=== PATIENT | female | born 1960 | race Caucasian/White ===

== ENCOUNTER 2018-03-27 11:54 | Outpatient (CLI) | payer OTHER | END 2018-03-27 11:55 | disposition home or self-care (01) | LOC: C.RT 11:54 ==

== ENCOUNTER 2018-04-07 08:58 | Outpatient (CLI) | payer OTHER | END 2018-04-07 08:59 | disposition home or self-care (01) | LOC: C.LAB 08:58 | DX: Z01.812 Encounter for preprocedural laboratory examination (principal) ==

== ENCOUNTER 2018-04-07 09:09 | Outpatient (CLI) | payer OTHER | END 2018-04-07 09:10 | disposition home or self-care (01) | LOC: C.LAB 09:09 | DX: R91.1 Solitary pulmonary nodule (principal) ==

== ENCOUNTER 2018-04-17 07:45 | Inpatient (IN) | payer OTHER ==
[2018-04-25] MEDS ORDERED: Bupivacaine HCl 0.25% PF (10 ml) Inj ONE ×2 (07:24)
[2018-04-25] MEDS ORDERED: ceFAZolin 1 gm in NS 2 GM/200 ML BAG IVPB ONE (07:24)
[2018-04-25] MEDS ORDERED: Collagen Hemostat Powder ONE (07:24)
[2018-04-25] MEDS ORDERED: Propofol 10 mg/ml Inj (20 ML) ONE ×2 (07:34→10:44)
[2018-04-25] MEDS ORDERED: Midazolam 2 MG/2 ML VIAL ONE (07:35)
[2018-04-25] MEDS ORDERED: Bupivacaine Liposomal Inj 20 ml ONE (07:45)
[2018-04-25] MEDS ORDERED: Bupivacaine Liposomal Inj 20 ml INFIL ONE (07:45)
[2018-04-25] MEDS ORDERED: Sodium Chloride 0.9% 40 ML IV ONE (08:54)
[2018-04-25 10:28] VITALS: BMI 27.8
[2018-04-25] MEDS ORDERED: Rocuronium 10 mg/ml (5 ml) ONE (11:03)
[2018-04-25] MEDS ORDERED: Succinylcholine Chloride 20 mg/ml Syr (5 ml) IV ONE (11:03)
[2018-04-25] MEDS: HYDROmorphone 0.5 mg/0.5 ml ISec IVP PRN ×5 (11:35→13:30)
[2018-04-25] MEDS ORDERED: HYDROmorphone 0.5 mg/0.5 ml ISec ONE (11:38)
[2018-04-25] MEDS ORDERED: Fluticasone-Vilanterol 200/25mcg Diskus INH PRN (11:39)
--- NOTE | 2018-04-25 11:44 | PCM.SURG1 ---
Surgeon's Initial Post Op Note - Surgeon's Notes Surgeon: Dr. Nelson Warehouse Processor: Dr. Nikko Thomas PGY3 Type of Anesthesia: General Endo Pre-Operative Diagnosis: Lung adenocarcinoma Operative Findings: see dictation Post-Operative Diagnosis: same Operation Performed: robotic right upper lobectomy w/ mediastinal lymph node Bx Specimen/Specimens Removed: right upper lobe, lymph nodes Estimated Blood Loss: EBL {In ML}: 94 Blood Products Given: N/A Drains Used: Chest Tubes Post-Op Condition: Good Date of Surgery/Procedure: 04/25/18 Time of Surgery/Procedure: 11:43
[2018-04-25] MEDS ORDERED: DiphenhydrAMINE 50 mg/ml Inj IVP ONE (12:15)
--- NOTE | 2018-04-25 13:57 | RAD ---
Date of service: 04/25/2018 PROCEDURE: CHEST RADIOGRAPH, 1 VIEW HISTORY: s/p lobectomy COMPARISON: 04/07/2018 FINDINGS: LUNGS: Status post right upper lobectomy. There is interval resection of previously noted right upper lobe mass. The left lung is well inflated and clear. There is mild pulmonary venous congestion. PLEURA: Right chest tube terminates in the apex. No pneumothorax. CARDIOVASCULAR: Persistent cardiomegaly. No aortic atherosclerotic calcifications present. OSSEOUS STRUCTURES: Within normal limits for the patient's age. VISUALIZED UPPER ABDOMEN: Normal. OTHER FINDINGS: None. IMPRESSION: Status post right upper lobectomy. No acute findings. Right chest tube terminates in the apex.
[2018-04-25] MEDS: Dextrose 5%/0.45% NS 1,000 ML IV SCH ×2 (15:00→22:07)
[2018-04-25 19:34] VITALS: RESP 20
[2018-04-25] MEDS: PARoxetine 5 mg Tab PO SCH ×2 (22:16→22:19)
[2018-04-26] MEDS: Dextrose 5%/0.45% NS 1,000 ML IV SCH ×2 (02:59→07:54)
[2018-04-26 07:25] LABS: HEMOGLOBIN 11.8 g/dL (11.0-16.0); MEAN CORPUSCULAR HEMOGLOBIN 28.4 pg (27.0-31.0); MEAN CORPUSCULAR HGB CONC 33.4 g/dL (33.0-37.0); MEAN PLATELET VOLUME 9.4 fL (7.2-11.7); RBC 4.16 Mil/uL (3.80-5.20); RED CELL DISTRIBUTION WIDTH 13.7 % (11.5-14.5); WHITE BLOOD COUNT 7.9 K/uL (4.8-10.8)
[2018-04-26 08:01] LABS: BLOOD UREA NITROGEN 7 mg/dL (7-17); CALCIUM 8.8 mg/dl (8.6-10.4); GFR NON-AFRICAN AMERICAN > 60
[2018-04-26] MEDS ORDERED: Potassium Chloride 20 mEq ER Tab PO ONE (08:13)
[2018-04-26] MEDS: oxyCODONE 10 mg Immediate Release Tab PO PRN ×4 (08:34→22:54)
--- NOTE | 2018-04-26 08:34 | CP.PCM.PN ---
Subjective - Date & Time of Evaluation Date of Evaluation: 04/26/18 Time of Evaluation: 07:00 - Subjective Subjective: Thoracic Surgery Dr. Nelson Pt seen and examined @bedside. Pt underwent right upper lobectomy yesterday. pt tolerated the procedure well w/ no complications. No acute events overnight. Pt reports some R-sided chest discomfort this AM. denies F/C, SOB, N/V. tolerating diet. RCT on ws, no leak, 140cc serosang since placement Objective - Vital Signs/Intake and Output Vital Signs (last 24 hours): Temp Pulse Resp BP Pulse Ox 97.9 F 80 20 131/83 97 04/26/18 07:05 04/26/18 07:49 04/26/18 07:05 04/26/18 07:05 04/26/18 07:05 Intake and Output: 04/26/18 04/26/18 06:59 18:59 Intake Total 1640 Output Total 490 Balance 1150 - Medications Medications: Current Medications Acetaminophen (Tylenol 325mg Tab) 650 mg PO Q6 PRN PRN Reason: Pain, Mild (1-3) Last Admin: 04/25/18 22:05 Dose: 650 mg Calcium Carbonate (Oscal) 500 mg PO DAILY [facility] Fluticasone/Vilanterol (Breo Ellipta 200-25 Mcg Inh) 1 puff INH RQD [facility] Heparin Sodium (Porcine) (Heparin) 5,000 units SC Q8 [facility] Last Admin: 04/26/18 05:44 Dose: 5,000 units Hydromorphone HCl (Dilaudid) 1 mg IVP Q4H PRN PRN Reason: Pain, severe (8-10) Ondansetron HCl (Zofran Inj) 4 mg IVP Q4 PRN PRN Reason: Nausea/Vomiting Last Admin: 04/25/18 17:37 Dose: 4 mg Oxycodone HCl (Oxycodone Immediate Release Tab) 10 mg PO Q4H PRN PRN Reason: Pain, moderate (4-7) Stop: 04/28/18 11:40 Paroxetine HCl (Paxil) 5 mg PO HS [facility] Last Admin: 04/25/18 22:19 Dose: Not Given - Labs Labs: 04/26/18 07:07 04/26/18 07:07 - Constitutional Appears: Non-toxic, No Acute Distress - Head Exam Head Exam: NORMAL INSPECTION - Eye Exam Eye Exam: Normal appearance - ENT Exam ENT Exam: Mucous Membranes Moist - Respiratory Exam Respiratory Exam: NORMAL BREATHING PATTERN. absent: Accessory Muscle Use, Respiratory Distress Additional comments: incisions c/d/i chest tube in place no palpable subQ emphysema - Cardiovascular Exam Cardiovascular Exam: REGULAR RHYTHM. absent: Bradycardia, Tachycardia - GI/Abdominal Exam GI & Abdominal Exam: Soft. absent: Distended, Tenderness - Extremities Exam Extremities Exam: Normal Inspection - Neurological Exam Neurological Exam: Alert, Awake, Oriented x3 - Psychiatric Exam Psychiatric exam: Normal Affect, Normal Mood - Skin Skin Exam: Dry, Intact, Normal Color, Warm Assessment and Plan - Assessment and Plan (Free Text) Assessment: 57 y/o F POD#1 s/p robotic right upper lobectomy 2/2 lung adenocarcinoma Plan: - f/u AM CXR - d/c dPCA; PO pain management - d/c IVF, hep-lock - ADAT - OOB to chair w/ meals - encourage Amb & IS use (10x per hour) - DVT PPx Pt discussed w/ Dr. Omar El DO PGY3
[2018-04-26] MEDS: HYDROmorphone 1 mg/ml ISec IVP PRN ×4 (10:41→23:33)
[2018-04-26] MEDS: Fluticasone-Vilanterol 200/25mcg Diskus INH SCH (11:25)
--- NOTE | 2018-04-26 13:07 | RAD ---
Date of service: 04/26/2018 HISTORY: s/p lobectomy; RCT COMPARISON: No prior. FINDINGS: LUNGS: In situ right-sided chest tube again noted unchanged.. Right upper lobectomy with elevation right hemidiaphragm and volume loss right hemithorax. Mild left basilar atelectasis. Previously noted mild mild central pulmonary venous congestion proved. PLEURA: No significant pleural effusion identified, no pneumothorax apparent. CARDIOVASCULAR: No aortic atherosclerotic calcification present. Normal cardiac size. No pulmonary vascular congestion. OSSEOUS STRUCTURES: No significant abnormalities. VISUALIZED UPPER ABDOMEN: Normal. OTHER FINDINGS: None. IMPRESSION: In situ right-sided chest tube again noted unchanged.. Right upper lobectomy with elevation right hemidiaphragm and volume loss right hemithorax. Mild left basilar atelectasis. Previously noted mild mild central pulmonary venous congestion proved.
[2018-04-26] MEDS: Lidocaine 5% Patch TD SCH (14:19)
[2018-04-26] MEDS ORDERED: PARoxetine 5 mg Tab PO SCH (22:00)
[2018-04-27] MEDS: oxyCODONE 10 mg Immediate Release Tab PO PRN ×4 (03:03→23:53)
[2018-04-27] MEDS ORDERED: HYDROmorphone 0.5 mg/0.5 ml ISec IVP PRN (04:44)
--- NOTE | 2018-04-27 07:35 | OP ---
PROCEDURE DATE: 04/25/2018 PREOPERATIVE DIAGNOSES: Biopsy proven right upper lobe early stage adenocarcinoma, permissible preoperative clearances including general medical clearance and pulmonary function reserved. POSTOPERATIVE DIAGNOSES: Biopsy proven right upper lobe early stage adenocarcinoma, permissible preoperative clearances including general medical clearance and pulmonary function reserved. PROCEDURE: 1. Flexible bronchoscopy. 2. Regional intercostal nerve block (multiple). 3. Robotic right video assisted thoracoscopic surgery. 4. Intrapleural pneumolysis. 5. Right upper lobectomy. 6. Mediastinal lymph node dissection (lymph nodes at stations 4, 7, and 10). SURGEON: Sridhar Nelson M.D. STRAIGHTENING MACHINE FEEDER: Rodney Mayo MD TYPE OF ANESTHESIA: General. ANESTHESIOLOGIST: As per operative record. INDICATIONS: R0 resection. SPECIMENS: As above. ESTIMATED BLOOD LOSS: Less than 100 mL. COMPLICATIONS: None. PROCEDURE IN DETAIL: The patient was identified by the operating room staff and placed supine onto the operating room table. Bilateral Venodynes were placed. Adequate IV access and monitoring lines were inserted by the anesthesiologist utilizing sterile technique. Prophylactic IV antibiotics were administered. General endotracheal anesthesia was induced uneventfully. Full bronchoscopic examination was performed. There were no other bronchial lesions noted. All deya were sharp. There was no airway inflammation noted. The position of the double-lumen endotracheal tube was confirmed to be in proper place with the use of the bronchoscope. The patient was then turned to the left lateral decubitus position and maintained there with a beanbag. All pressure points were appropriately padded. The position of the double lumen endotracheal tube was once again confirmed to be in proper place with the use of the bronchoscope. With maximal hip flexion, the patient was securely positioned, prepped and draped in the usual sterile fashion. A regional intercostal nerve block was performed to the entire right lateral chest wall by infiltrating 0.25% Marcaine in all of the intercostal spaces, just medial to the vertebral takeoffs. A robotic assisted thoracoscopy was next performed via five port sites. Four were robotic arms and one was utility resident assistant port. These port sites were individually anesthetized as well. CO2 insufflation was utilized, but not to exceed 8 mmHg. Upon entering the hemithorax, there was no evidence of any effusion. There was no evidence of any . The area of concern was readily identified. There was a moderate amount of adhesions at the apex and medial portions of the right upper lobe. An intrapleural pneumolysis was performed with a bipolar device and gentle blunt manipulation is being necessary. This allowed complete mobilization of the right upper lobe. Attention was turned to the posterior hilum. The subcarinal space was opened. Lymph nodes at station 7 were dissected and passed off the field for permanent pathologic evaluation. Lymph nodes at stations 10 and 11 surrounding the right upper lobe takeoff were also dissected and passed off the field as specimens. Attention was then turned in a circumferential fashion to the superior hilum and then the anterior hilum. The superior pulmonary vein was isolated and then divided using a linear Endo-RENEE stapler with a vascular load. The apical trunk and additional posterior ascending branches were then identified in sequence. They too were individually isolated and then divided utilizing a similar vascular Endo-RENEE stapler. The last structure to be taken was the bronchus. This was taken in a sequence while taking the fissure and this was done with sequential firings of a linear Endo-RENEE stapler utilizing a thick parenchymal load. Lymph nodes in the paratracheal region as well as in the hilar portion were identified during the dissection and passed off the field for permanent pathologic evaluation. Hemostasis was achieved with the use of the bipolar device as well as topical hemostatic agents like Surgicel. The bronchial stump and residual staple lines were tested under sterile water and were free of any significant air leak. The hemithorax was drained with single 28-Lao straight chest tube, placed in a posterior apical fashion. Two-lung ventilation resumed and good pleural opposition was noted. The inferior pulmonary ligament was taken down sharply as well so as the help of lung expansion. Additional regional intercostal nerve block was performed by infiltrating the long-acting Marcaine referred to as Exparel. All robotic arms were undocked successfully. The all port sites were closed in layers with absorbable suture. The chest tube was anchored to the skin with a heavy monofilament suture and attached to sterile Pleur-evac tubing and placed on suction. All counts were correct x2. The patient was laid supine, sterile dressings were applied. The patient was extubated uneventfully. She was sent back to the postanesthesia care unit with stable hemodynamics and stable respiratory status. There was minimal chest tube outputs upon arrival to the PACU. Sridhar Nelson M.D. [facility] # [id number]
--- NOTE | 2018-04-27 07:52 | CP.PCM.PN ---
Subjective - Date & Time of Evaluation Date of Evaluation: 04/27/18 Time of Evaluation: 07:48 - Subjective Subjective: SURGERY NOTE FOR DR. CASTLE 57F seen and examined at bedside. Patient doing well this AM, denies chest pain, denies shortness of breath. Objective - Vital Signs/Intake and Output Vital Signs (last 24 hours): Temp Pulse Resp BP Pulse Ox 98.9 F 91 H 20 125/75 95 04/26/18 23:25 04/26/18 23:25 04/26/18 23:25 04/26/18 23:25 04/26/18 23:25 - Medications Medications: Current Medications Acetaminophen (Tylenol 325mg Tab) 650 mg PO Q6 PRN PRN Reason: Pain, Mild (1-3) Last Admin: 04/25/18 22:05 Dose: 650 mg Calcium Carbonate (Oscal) 500 mg PO DAILY [facility] Last Admin: 04/26/18 09:38 Dose: 500 mg Fluticasone/Vilanterol (Breo Ellipta 200-25 Mcg Inh) 1 puff INH RQD [facility] Last Admin: 04/26/18 11:25 Dose: Not Given Heparin Sodium (Porcine) (Heparin) 5,000 units SC Q8 [facility] Last Admin: 04/27/18 05:25 Dose: Not Given Hydromorphone HCl (Dilaudid) 1 mg IVP Q4H PRN PRN Reason: Pain, severe (8-10) Last Admin: 04/26/18 23:33 Dose: 1 mg Hydromorphone HCl (Dilaudid) 0.5 mg IVP Q4H PRN PRN Reason: Pain, severe (8-10) Last Admin: 04/27/18 04:52 Dose: 0.5 mg Lidocaine (Lidoderm) 1 ea TD DAILY [facility] Last Admin: 04/26/18 14:19 Dose: 1 ea Ondansetron HCl (Zofran Inj) 4 mg IVP Q4 PRN PRN Reason: Nausea/Vomiting Last Admin: 04/25/18 17:37 Dose: 4 mg Oxycodone HCl (Oxycodone Immediate Release Tab) 10 mg PO Q4H PRN PRN Reason: Pain, moderate (4-7) Stop: 04/28/18 11:40 Last Admin: 04/27/18 03:03 Dose: 10 mg Paroxetine HCl (Paxil) 5 mg PO HS [facility] - Labs Labs: 04/26/18 07:07 04/26/18 07:07 - Constitutional Appears: Non-toxic, No Acute Distress - Respiratory Exam Respiratory Exam: Clear to Ausculation Bilateral, NORMAL BREATHING PATTERN Additional comments: right chest tube in place - no air leak - Cardiovascular Exam Cardiovascular Exam: REGULAR RHYTHM, +S1, +S2 - GI/Abdominal Exam GI & Abdominal Exam: Soft. absent: Distended, Firm, Guarding, Rigid, Tenderness, Rebound - Neurological Exam Neurological Exam: Alert, Awake - Skin Skin Exam: Dry, Intact, Normal Color, Warm Assessment and Plan - Assessment and Plan (Free Text) Assessment: 57F with right lung cancer, s/p robotic right upper lung lobectomy, mediastinal lymph node biopsy POD#2 Plan: - discontinue chest tube - post pull cxr - ambulating, incentive spirometer - PO pain medication Further recs discuss with Dr. Omar Bullard, PGY3
[2018-04-27] MEDS ORDERED: HYDROmorphone 0.5 mg/0.5 ml ISec IVP ONE (08:30)
--- NOTE | 2018-04-27 09:33 | RAD ---
HISTORY: s/p VATS; Chest tube COMPARISON: Chest x-ray performed 04/26/18 at 846 hr TECHNIQUE: Chest, one view. FINDINGS: LUNGS: Right-sided chest tube. Right upper lobectomy. Left basilar atelectasis. CARDIOVASCULAR: Cardiomegaly. Ectatic aorta. OSSEOUS STRUCTURES: Degenerative changes. VISUALIZED UPPER ABDOMEN: Unremarkable. OTHER FINDINGS: None. IMPRESSION: Right-sided chest tube. Right upper lobectomy. Left basilar atelectasis. Cardiomegaly.
[2018-04-27] MEDS: Calcium Carbonate 500 mg Chewable Antacid Tab PO SCH ×2 (10:13→17:28)
[2018-04-27] MEDS: Lidocaine 5% Patch TD SCH (10:13)
[2018-04-27] MEDS: Fluticasone-Vilanterol 200/25mcg Diskus INH SCH (11:08)
--- NOTE | 2018-04-27 11:20 | RAD ---
Date of service: 04/27/2018 HISTORY: chest tube discontinued COMPARISON: No prior. FINDINGS: LUNGS: No active pulmonary disease. PLEURA: Status post removal right chest tube. No pneumothorax. Possible small left pleural effusion. No right pleural effusion. CARDIOVASCULAR: No aortic atherosclerotic calcification present. Normal cardiac size. No pulmonary vascular congestion. OSSEOUS STRUCTURES: No significant abnormalities. VISUALIZED UPPER ABDOMEN: Normal. OTHER FINDINGS: None. IMPRESSION: Right chest tube removed. Possible small left pleural effusion. Otherwise unremarkable.
[2018-04-27] MEDS: Tramadol 25 mg PO PRN (14:46)
[2018-04-28] MEDS: oxyCODONE 10 mg Immediate Release Tab PO PRN ×2 (05:36→10:32)
--- NOTE | 2018-04-28 08:35 | CP.PCM.DIS ---
Provider - Provider Date of Admission: 04/25/18 05:59 Attending physician: Sridhar Nelson Time Spent in preparation of Discharge (in minutes): 30 Diagnosis - Discharge Diagnosis (1) Adenocarcinoma of lung Status: Acute Priority: High Hospital Course - Lab Results Lab Results: Most Recent Lab Values WBC 7.9 K/uL (4.8-10.8) 04/26/18 07:07 RBC 4.16 Mil/uL (3.80-5.20) 04/26/18 07:07 Hgb 11.8 g/dL (11.0-16.0) 04/26/18 07:07 Hct 35.3 % (34.0-47.0) 04/26/18 07:07 MCV 85.0 fL (81.0-99.0) 04/26/18 07:07 MCH 28.4 pg (27.0-31.0) 04/26/18 07:07 MCHC 33.4 g/dL (33.0-37.0) 04/26/18 07:07 RDW 13.7 % (11.5-14.5) 04/26/18 07:07 Plt Count 207 K/uL (130-400) 04/26/18 07:07 MPV 9.4 fL (7.2-11.7) 04/26/18 07:07 Sodium 138 mmol/L (132-148) 04/26/18 07:07 Potassium 3.4 mmol/L (3.6-5.2) L 04/26/18 07:07 Chloride 104 mmol/L (98-107) 04/26/18 07:07 Carbon Dioxide 27 mmol/L (22-30) 04/26/18 07:07 Anion Gap 10 (10-20) 04/26/18 07:07 BUN 7 mg/dL (7-17) 04/26/18 07:07 Creatinine 0.4 mg/dL (0.7-1.2) L 04/26/18 07:07 Est GFR ( Amer) > 60 04/26/18 07:07 Est GFR (Non-Af Amer) > 60 04/26/18 07:07 Random Glucose 122 mg/dL (65-105) H D 04/26/18 07:07 Calcium 8.8 mg/dl (8.6-10.4) 04/26/18 07:07 Phosphorus 2.9 mg/dL (2.5-4.5) 04/26/18 07:07 Magnesium 1.8 mg/dL (1.6-2.3) 04/26/18 07:07 Blood Type O POSITIVE 04/25/18 07:34 Antibody Screen Negative 04/25/18 07:34 - Hospital Course Hospital Course: 57 y/o F w/ PMHx of HTN, HLD, colon ca presents to [facility] on 3 for scheduled robotic right upper lobe resection 2/2 nodule found to be adenocarcinoma on previous Bx. Pt tolerated the procedure well w/ no complications. Pt admitted to [facility] for continuous monitoring post-operatively. Chest tube w/ minimal output on POD#1 and placed to water seal. Pt continued to improve w/ pain well controlled. Chest tube removed on POD#2 w/ stable post-pull CXR. Pt seen and examined this AM. No acute events overnight. Pt c/o burning at chest tube site. Pt found to have rash, likely from reaction to tape. Otherwise, pt has no complaints. denies CP, SOB, F/C, N/V. tolerating diet. Discharge Exam - Head Exam Head Exam: NORMAL INSPECTION - Eye Exam Eye Exam: Normal appearance - ENT Exam ENT Exam: Mucous Membranes Moist - Respiratory Exam Respiratory Exam: NORMAL BREATHING PATTERN. absent: Accessory Muscle Use, Respiratory Distress Additional comments: erythema and irritation at chest tube dressing site. dressing saturated (new occlusive dressing applied) remaining dressing c/d/i - Cardiovascular Exam Cardiovascular Exam: REGULAR RHYTHM. absent: Bradycardia, Tachycardia - GI/Abdominal Exam GI & Abdominal Exam: Soft. absent: Distended, Tenderness - Extremities Exam Extremities exam: normal inspection - Neurological Exam Neurological exam: Alert, Oriented x3 - Psychiatric Exam Psychiatric exam: Normal Affect, Normal Mood - Skin Skin Exam: Dry, Intact, Warm Discharge Plan - Follow Up Plan Condition: GOOD Disposition: HOME/ ROUTINE Patient education suggested?: Yes Instructions: Lung Cancer, Pulmonary Lobectomy, How to Prevent Surgical Site Infections Additional Instructions: f/u w/ Dr. Nelson in office in 7-10 days f/u w/ PMD in 1 week Take all medications as prescribed Pt may shower 3/10 but do not soak incisions no pools, tubs, or baths change outer dressings as needed leave steristrips in place, they will fall off on their own Call Dr. Chambers/return to the ED if Fever >101, pain, redness at, drainage from, or rupture of incisions Referrals: Sridhar Nelson [Staff Provider] -
[2018-04-28 09:03] VITALS: BP 121/79; PULSE 95; TEMP 99.5; O2SAT 95
[2018-04-28] MEDS: Calcium Carbonate 500 mg Chewable Antacid Tab PO SCH (10:33)
[2018-04-28] MEDS: Lidocaine 5% Patch TD SCH (10:33)
[2018-04-28] MEDS: Fluticasone-Vilanterol 200/25mcg Diskus INH SCH (10:57)
[2018-04-28] MEDS: Tramadol 25 mg PO PRN (13:15)
== END 2018-04-28 15:00 | disposition home or self-care (01) | DRG 165 ==
LOC: C.9S 04-25 05:59 → C.9I 04-25 14:34 → C.6T 04-25 18:50
PROVIDERS: ADMIT Thoracic Surgery (Cardiothoracic Vascular Surgery); ATTEND Thoracic Surgery (Cardiothoracic Vascular Surgery)
PROC: 0BNF4ZZ Release Right Lower Lung Lobe, Percutaneous Endoscopic Approach (ICD-10-PCS; 2018-04-25)
PROC: 3E0T3BZ Introduction of Anesthetic Agent into Peripheral Nerves and Plexi, Percutaneous Approach (ICD-10-PCS; 2018-04-25)
PROC: 0BJ08ZZ Inspection of Tracheobronchial Tree, Via Natural or Artificial Opening Endoscopic (ICD-10-PCS; 2018-04-25)
PROC: 8E0W4CZ Robotic Assisted Procedure of Trunk Region, Percutaneous Endoscopic Approach (ICD-10-PCS; 2018-04-25)
PROC: 0BTC4ZZ Resection of Right Upper Lung Lobe, Percutaneous Endoscopic Approach (ICD-10-PCS; principal; 2018-04-25 07:45)
DX: C34.11 Malignant neoplasm of upper lobe, right bronchus or lung (principal); E78.5 Hyperlipidemia, unspecified; I10 Essential (primary) hypertension; Z85.038 Personal history of other malignant neoplasm of large intestine